=== PATIENT | female | born 1985 | race African-American/Black ===

== ENCOUNTER 2019-05-05 09:56 | Emergency (ER) | payer MEDICAID, OTHER ==
[~2019-05-05] VITALS: Ht 172.7 cm; Wt 65.0 kg
[~2019-05-05 09:56] MED LIST: MIRT15TA6; PARO10TA74
[2019-05-05] MEDS ORDERED: TRAMADOL 50MG TABLET PO ONE (11:45)
[2019-05-05 13:24] VITALS: BP 110/52
== END 2019-05-05 13:24 | disposition home or self-care (01) ==
LOC: ER 09:56
DX: S76.012A Strain of muscle, fascia and tendon of left hip, initial encounter (principal); M79.10 Myalgia, unspecified site; R51 Headache; F17.200 Nicotine dependence, unspecified, uncomplicated; F12.10 Cannabis abuse, uncomplicated; Z79.899 Other long term (current) drug therapy; V89.2XXA Person injured in unspecified motor-vehicle accident, traffic, initial encounter; Y93.89 Activity, other specified; Y92.89 Other specified places as the place of occurrence of the external cause; Y99.8 Other external cause status
CPT/HCPCS: 72170; 99283

== ENCOUNTER 2025-05-09 18:48 | Emergency (ER) | payer OTHER ==
[~2025-05-09] VITALS: Ht 172.7 cm; Wt 70.0 kg
[~2025-05-09 18:48] MED LIST changes: +MIRT-89; -MIRT15TA6
[2025-05-09 18:57] VITALS: O2SAT 100
[2025-05-09 19:10] VITALS: BP 110/45; PULSE 92; RESP 16; TEMP 36.9; O2SAT 100
== END 2025-05-09 22:46 | disposition left against medical advice (07) ==
LOC: ER 19:10
DX: M54.2 Cervicalgia (principal); Z53.21 Procedure and treatment not carried out due to patient leaving prior to being seen by health care provider
CPT/HCPCS: 99281